=== PATIENT | female | born 1980 | race Caucasian/White ===

== ENCOUNTER 2020-02-08 16:50 | Emergency (ER) | payer OTHER ==
[~2020-02-08] VITALS: Ht 160 cm; Wt 95.9 kg
[2020-02-08 17:00] VITALS: BP 152/93
[2020-02-08] MEDS ORDERED: FLUORESCEIN 1MG EYE STRIP. OU ONE (17:15)
[2020-02-08] MEDS ORDERED: TETRACAINE 0.5% OPHTH SOLUTION 4ML BOTTLE. OU ONE (17:15)
[2020-02-08] MEDS ORDERED: HYDR-3165 PO (17:37)
--- NOTE | 2020-02-08 17:41 | PHYS DOC ---
Past History Past Medical History: Anxiety Past Surgical History: Hysterectomy, Other Alcohol Use: None Drug Use: None General Adult EDM: Chief Complaint: SKIN RASH/ABSCESS HPI: HPI: 39-year-old female past medical history significant for sarcoidosis, presents the ED with complaints of tingling, painful rash that started over patient's right cheek and right upper forehead the day after she received her MMR, varicella and Tdap vaccinations. Patient states she has been to the urgent care twice. Initially was prescribed amoxicillin and antiviral medication. Returned today and was referred here for an eye evaluation and to consider IV antivirals. Does report increased stress with new job. Wears glasses, no contacts. Denies any blurry vision or new hearing loss (wears bl hearing aids). Does report having chickenpox as a kid. Review of Systems: Review of Systems: Constitutional: Denies fever or chills Eyes: Denies change in visual acuity HENT: Denies nasal congestion or sore throat Respiratory: Denies cough or shortness of breath Cardiovascular: Denies chest pain or edema GI: Denies abdominal pain, nausea, vomiting, bloody stools or diarrhea : Denies dysuria Musculoskeletal: Denies back pain or joint pain Integument: Denies rash Neurologic: Denies headache, focal weakness or sensory changes or nuchal rigidity Endocrine: Denies polyuria or polydipsia Lymphatic: Denies swollen glands Psychiatric: Denies depression or anxiety Heart Score: Risk Factors: Risk Factors: DM, Current or recent (<one month) smoker, HTN, HLP, family history of CAD, obesity. Risk Scores: Score 0 - 3: 2.5% MACE over next 6 weeks - Discharge Home Score 4 - 6: 20.3% MACE over next 6 weeks - Admit for Clinical Observation Score 7 - 10: 72.7% MACE over next 6 weeks - Early Invasive Strategies Current Medications: Current Meds: Current Medications Medications (Trade) Dose Ordered Sig/Trish Start Time Stop Time Status Last Admin Dose Admin Fluorescein Sodium (Ful-Denisse 1mg) 1 strip 1X ONCE 02/08/20 17:15 02/08/20 17:18 DC 02/08/20 17:16 1 STRIP Tetracaine HCl (Tetracaine) 1 drop 1X ONCE 02/08/20 17:15 02/08/20 17:18 DC 02/08/20 17:16 1 DROP Allergies: Allergies: Allergies Coded Allergies Type Severity Reaction Last Updated Verified No Known Drug Allergies 08/17/15 No Physical Exam: PE: Constitutional: Well developed, well nourished, no acute distress, non-toxic appearance. [] HENT: Normocephalic, atraumatic, bilateral external ears normal, oropharynx moist, no oral exudates, nose normal, normal TMs bl, erthematous painful slightly rashed rash over right upper forehead (V1 distribution) with scabs-rash also on right cheek, no Gaytan sign Eyes: PERRLA, EOMI, conjunctiva normal, no discharge. [] Neck: Normal range of motion, no tenderness, supple, no stridor. [] Cardiovascular:Heart rate regular rhythm, no murmur [] Lungs & Thorax: Bilateral breath sounds clear to auscultation [] Abdomen: Bowel sounds normal, soft, no tenderness, no masses, no pulsatile masses. [] Skin: Warm, dry, no erythema, no rash. [] Back: No tenderness, no CVA tenderness. [] Extremities: No tenderness, no cyanosis, no clubbing, ROM intact, no edema. [] Neurologic: Alert and oriented X 3, normal motor function, normal sensory f unction, no focal deficits noted. [] Psychologic: Affect normal, judgement normal, mood normal. [] EKG: EKG: [] Radiology/Procedures: Radiology/Procedures: [] Course & Med Decision Making: Course & Med Decision Making Pertinent Labs and Imaging studies reviewed. (See chart for details) Concern for herpes zoster in V1 distribution with no Gaytan sign. No dendrites or pseudo-dendrite on fluorescein exam. Patient with no blurry vision or hearing loss. No vesicular lesions on tympanic membrane. -No evidence of herpes zoster ophthalmicus or Clemson Olvera syndrome at this time. Patient with no photophobia or phonophobia. Will still refer to ophthalmology for slit-lamp exam and consider steroids. Strict ED return precautions given for blurry vision or decreased hearing, neck stiffness or headache. Encouraged urgent outpatient follow-up with PMD and Ortho. Life-threatening processes were considered but are low suspicion at this time, given history and physical exam. Pt was educated on all prescription medications and adverse effects. All patient's questions were answered and pt was stable at time of discharge. Differential includes erythema multiforme, krishnan-suresh syndrome, toxic epidermal necrolysis, staphylococcal scalded skin syndrome, necrotizing fasciit is/myositis/cellulitis, purpura fulminans, heparin or warfarin induced skin necrosis, drug rash, disseminated intravascular coagulation, disseminated gonococcal disease, vasculitis, septicemia, petechial disorder or coagulopathy, viral exanthem, Kawasaki's disease. I spoken with the patient and her caregivers. I explained the patient's condition, diagnoses and treatment plan based on the information available to me at this time. I have answered the patient and her caregiver's questions and addressed any concerns. The patient and her caregivers have a good understanding of patient's diagnosis, condition and treatment plan as can be expected at this point. Vital signs have been stable. Patient's condition is stable and appropriate for discharge from the emergency department. Patient will pursue further outpatient evaluation with primary care physician or other designated or consulting physician as outlined in the discharge instructions. The patient and/or caregivers are agreeable to this plan of care and follow-up instructions have been explained in detail. The patient and/or caregivers have received these instructions in written form and have expressed an understanding of the discharge instructions. The patient and/or caregivers are aware that any significant change of condition or worsening of symptoms should prompt immediate return to this or the closest emergency department or call to [phone]. Andrew Disclaimer: Andrew Disclaimer: This electronic medical record was generated, in whole or in part, using a voice recognition dictation system. Departure Departure: Impression: Primary Impression: Herpes zoster Disposition: 01 HOME/RESIDENCE PRIOR TO ADM Condition: STABLE Referrals: JOE MARIN (PCP) Patient Instructions: Shingles Additional Instructions: Guido Mcmillan, DO-ophthalmology [address] [id number] Cool compresses/lubrication drops Topical antibiotics to skin to prevent secondary infection Antiviral therapy indicated for rash <1wk duration Ophtho consultation regarding steroid use EMERGENCY DEPARTMENT GENERAL DISCHARGE INSTRUCTIONS Thank you for coming to [facility] (ED) today and trusting us with you care. We trust that you had a positivie experience in our Emergency Department. If you wish to speak to the department management, you may call the sirector at [phone]. YOUR FOLLOW UP INSTRUCTIONS ARE FOLLOWS: 1. Do you have a private Doctor? If you do not have a private doctir, please ask for a resource list of physicians or clinics that may be able to assist you with follow up care. 2. The Emergency Physicain has interpreted your x-rays. The X-Ray specialist will also review them. If there is a change in the findingd, you will be notified in 48 hours when at all possible. 3. A lab test or culture has been done, your results will be reviewed and you will be notified if you need a change in treatment. ADDITIONAL INSTRUCTIONS AND INFORMATION: 1. Your care today has been supervised by a physician who is specially trained in emergency care. Many problems require more than one evaluation for a complete diagnosis and treatment. We recommend that you schedule your follow up appointment as recommended to ensure complete treatment of you illness or injury. If you are unable to obtain follow up care and continue to have a problem, or if your consition worsens, we recommend that you return to the ED. 2. We are not able to safelymdetermine your condition over the phone nor are we able to give sound medical advice over the phone. For these safety reasons, if you call for medical advice we will ask you to come to the ED for further evaluation. 3. If you have any questions regarding these discharge instructions please call the ED at [phone]. SAFETY INFORMATION: In the interest of safety, wellness, and injury prevention; we encourage you to wear your sealbelt, if you smoke; quite smoking, and we encourage family to use a protective helmet for bicycling and other sporting events that present an increased risk for head injusry. IF YOUR SYMPTOMS WORSEN OR NEW SYMPTOMS DEVELOP, OR YOU HAVE CONCERNS ABOUT YOUR CONDITION; OR IF YOUR CONDITION WORSENS WHILE YOU ARE WAITING FOR YOUR FOLLOW UP APPOINTMENT; EITHER CONTACT YOUR PRIMARY CARE DOCTOR, THE PHYSICIAN WHOSE NAME AND NUMBER YOU WERE GIVEN, OR RETURN TO THE ED IMMEDIATELY. Scripts Hydrocodone Bit/Acetaminophen (NORCO 5-325 TABLET) 1 Each Tablet 1 TAB PO PRN Q6HRS PRN for PAIN for 3 Days, #12 TAB 0 Refills Prov: AUBREY SAWYER DO 02/08/20 Justification of Admission: Justification of Admission: Justification of Admission Dx: N/A AUBREY SAWYER DO Feb 08, 2020 17:41
== END 2020-02-08 17:50 | disposition home or self-care (01) ==
LOC: ER 16:50
DX: B02.9 Zoster without complications (principal); F41.9 Anxiety disorder, unspecified
CPT/HCPCS: 99283

== ENCOUNTER 2021-05-20 03:22 | Emergency (ER) | payer OTHER ==
[~2021-05-20] VITALS: Ht 160 cm; Wt 94.4 kg
[~2021-05-20 03:22] MED LIST: HYDR-3165 PO
[2021-05-20 03:25] VITALS: BP 155/100
--- NOTE | 2021-05-20 03:37 | PHYS DOC ---
Past History Past Medical History: Anxiety, Migraines, Other Additional Past Medical Histor: sarcodosis Past Surgical History: Cholecystectomy, Hysterectomy, Other Additional Past Surgical Histo: ear surgeries Alcohol Use: None Drug Use: None Adult General Chief Complaint Chief Complaint: DENTAL PROBLEM HPI HPI Patient is a 40-year-old female presents with dental pain on the right bottom molar for 2 days. States she had a In place that came out. States she talked to her dentist and was prescribed amoxicillin but nothing for pain. States she does have an upcoming appointment next week. Denies any pain or trouble swallowing, fevers, nausea, vomiting. States she tried some Tylenol and Orajel at home with minimal relief. States she did use some oxycodone from her that was left over. Review of Systems Review of Systems Review of systems otherwise unremarkable except noted in HPI Allergies Allergies Allergies Coded Allergies Type Severity Reaction Last Updated Verified No Known Drug Allergies 08/17/15 No Physical Exam Physical Exam Constitutional: Well developed, well nourished, no acute distress, non-toxic appearance. [] HENT: Normocephalic, atraumatic, bilateral external ears normal, poor dentition generally, right bottom back molar with dental carry, oropharynx moist, no oral exudates, nose normal. [] Eyes: conjunctiva normal, no discharge. [] Neck: Normal range of motion, no tenderness, supple, no stridor. [] Cardiovascular:Heart rate regular rhythm, no murmur [] Lungs & Thorax: Bilateral breath sounds clear to auscultation [] Neurologic: Alert and oriented X 3, no focal deficits noted. [] Psychologic: Affect normal, judgement normal, mood normal. [] EKG EKG [] Radiology/Procedures Radiology/Procedures [] Heart Score C/O Chest Pain: No Risk Factors: Risk Factors: DM, Current or recent (<one month) smoker, HTN, HLP, family history of CAD, obesity. Risk Scores: Risk Factors: DM, Current or recent (<one month) smoker, HTN, HLP, family history of CAD, obesity. Course & Med Decision Making Course & Med Decision Making Patient is a 40-year-old female presents with dental pain Signs not concerning. Physical exam noted above. Deferred dental block Given pain medicine. Discussed pain management at home. Advised to continue taking her amoxicillin as prescribed by her dentist today Advised to follow-up with her dentist as soon as she can. Gave return precautions to the ED. Patient grateful, verbalized understanding and agreed with plan of discharge. Andrew Disclaimer Adnrew Disclaimer This electronic medical record was generated, in whole or in part, using a voice recognition dictation system. Departure Departure: Impression: Primary Impression: Pain, dental Disposition: HOME / SELF CARE / HOMELESS Condition: GOOD Referrals: ADALID SEARS DO (PCP) Patient Instructions: Dental Pain Additional Instructions: Thank you for coming into the emergency department tonight and allowing us to take care of you. Please read the attached information carefully to go over things we discussed. It is very important that you call a dentist as soon as possible to set up an appointment to discuss need for repair versus root canal versus extraction. Please continue to take your amoxicillin as prescribed and until gone. Please begin a Tylenol, ibuprofen and Orajel regimen. Please take your prescription pain medicine as prescribed. You can call the emergency de ntist at [phone], your dentist or the [facility] dental school as well as the free dental clinics given to you and your resources. ALTON MEANS MD May 20, 2021 03:37
[2021-05-20] MEDS ORDERED: diphenhydrAMINE HCL 25 MG CAPSULE PO ONE (04:00)
[2021-05-20] MEDS ORDERED: BENZOCAINE ONE 20% MUCOSAL SPRAY. MM (04:00)
[2021-05-20] MEDS ORDERED: ACETAMINOPHEN/CODEINE 300/30MG 4TABLET STARTPACK. PO ONE (04:00)
[2021-05-20] MEDS ORDERED: FLUO20CA16 PO (04:30)
[2021-05-20] MEDS ORDERED: fioricet (04:30)
== END 2021-05-20 04:05 | disposition home or self-care (01) ==
LOC: ER 03:22
DX: K02.9 Dental caries, unspecified (principal); K08.89 Other specified disorders of teeth and supporting structures; F41.9 Anxiety disorder, unspecified; G43.909 Migraine, unspecified, not intractable, without status migrainosus
CPT/HCPCS: 99284; Q0163